=== PATIENT | female | born 1960 | race Caucasian/White ===

== ENCOUNTER 2018-11-02 15:08 | Outpatient (CLI) | payer OTHER ==
--- NOTE | 2018-11-02 19:04 | RAD ---
RIGHT FOOT THREE VIEWS 11/02/18 No fracture or area of bony destruction was seen. There is no acute bony change. A large calcaneal sp ur was noted. There is some minor arthritic changes in some of the intertarsal joints. The third meta tarsal head is flattened and slightly deformed. It is most suggestive of an old injury to this locati on. IMPRESSION: 1. Deformity of the third metatarsal head, most likely due to old trauma. 2. Large calcaneal spur. POS: HOME
== END 2018-11-02 15:09 | disposition home or self-care (01) ==
LOC: BURRAD 15:08
PROVIDERS: ATTEND Family Medicine
DX: M79.671 Pain in right foot (principal); M77.31 Calcaneal spur, right foot

== ENCOUNTER 2022-03-24 13:57 | Emergency (ER) | payer OTHER | END 2022-03-24 14:55 | disposition home or self-care (01) | LOC: BURERS 13:57 | DX: S89.92XA Unspecified injury of left lower leg, initial encounter (principal); E11.9 Type 2 diabetes mellitus without complications; X58.XXXA Exposure to other specified factors, initial encounter ==

== ENCOUNTER 2023-05-07 06:29 | Emergency (ER) | payer OTHER ==
[2023-05-07 07:25] LABS: Bilirubin Negative (Negative); Blood, Urine Trace (Negative); Clarity Clear (Clear); Glucose, Urine (Dipstick) Negative (Negative); Ketone, Urine Negative (Negative); Leukocyte Trace (Negative); Nitrite Negative (Negative); Protein, Urine (Dipstick) 100 mg/dL (Neg-Trace); Urobilinogen 0.2 mg/dL (Less than 2)
[2023-05-07 07:28] LABS: Specific Gravity, Urine 1.022 (1.002-1.036)
[2023-05-07 07:33] LABS: Bacteria/HPF 2+ HPF (None Seen); CAUTI Indications for Culture Dysuria,urgency,freq; RBC/HPF 0-3 HPF (0-3); Squamous Epithelial 0-3 HPF (0-3); WBC/HPF 0-3 HPF (0-3)
[2023-05-07 07:34] LABS: Urine Culture Reflex No No
== END 2023-05-07 07:20 | disposition home or self-care (01) ==
LOC: BURERS 06:29
DX: S43.402A Unspecified sprain of left shoulder joint, initial encounter (principal); E11.9 Type 2 diabetes mellitus without complications; Z79.84 Long term (current) use of oral hypoglycemic drugs; W19.XXXA Unspecified fall, initial encounter
CPT/HCPCS: 81001

== ENCOUNTER 2023-06-16 11:33 | Outpatient (CLI) | payer OTHER | END 2023-06-16 11:34 | disposition home or self-care (01) | LOC: BURRAD 11:33 | PROVIDERS: ATTEND Family Medicine | DX: Z01.818 Encounter for other preprocedural examination (principal) | CPT/HCPCS: 71046; 93005; 93010 ==

== ENCOUNTER 2024-05-16 12:20 | Emergency (ER) | payer MEDICARE ==
[2024-05-16 12:41] LABS: Bilirubin Moderate (Negative); Blood, Urine Large (Negative); Clarity Turbid (Clear); Glucose, Urine (Dipstick) Negative (Negative); Ketone, Urine 15 mg/dL (Negative); Leukocyte Negative (Negative); Nitrite Negative (Negative); Protein, Urine (Dipstick) > or equal to 300 mg/dL (Neg-Trace)
[2024-05-16 12:42] LABS: Specific Gravity, Urine 1.026 (1.002-1.036)
[2024-05-16 12:49] LABS: Bacteria/HPF 3+ HPF (None Seen); CAUTI Indications for Culture Dysuria,urgency,freq; Calcium Oxalate Crystals Rare HPF (None Seen); RBC/HPF Greater than 50 HPF (0-3)
[2024-05-16 12:51] LABS: Urine Culture Reflex No No
== END 2024-05-16 13:15 | disposition home or self-care (01) ==
LOC: BURERS 12:20
DX: R31.9 Hematuria, unspecified (principal); E11.9 Type 2 diabetes mellitus without complications
CPT/HCPCS: 81001; 99283

== ENCOUNTER 2024-07-05 20:19 | Emergency (ER) | payer MEDICARE ==
[2024-07-05 21:36] LABS: ALT (SGPT) 15 U/L (8-55); AST (SGOT) 15 U/L (5-34); Alkaline Phosphatase 42 U/L (40-110); Anion Gap 16 mmol/L (10-20); BUN (Urea Nitrogen) 16 mg/dL (9.8-20.1); Bilirubin, Total 0.3 mg/dL (0.2-1.2); Calc. Creatinine Clearance 0 mL/min (70-130); Calcium 9.9 mg/dL (7.8-10.44); Carbon Dioxide 21 mmol/L (23-31); Chloride 104 mmol/L (98-107); Estimated GFR 46; Globulin 3.3 g/dL (2.4-3.5); Glucose 283 mg/dL (80-115); Protein, Total 7.3 g/dL (5.8-8.1); Sodium 137 mmol/L (136-145)
[2024-07-05 21:40] LABS: Bilirubin Negative (Negative); Blood, Urine Small (Negative); Clarity Clear (Clear); Glucose, Urine (Dipstick) 500 mg/dL (Negative); Ketone, Urine Trace mg/dL (Negative); Leukocyte Trace (Negative); Nitrite Negative (Negative); Protein, Urine (Dipstick) 30 mg/dL (Neg-Trace); Urobilinogen 0.2 mg/dL (Less than 2); pH, Urine 5.5 (5.0-9.0)
[2024-07-05 21:41] LABS: #Basophils 0.2 thou/uL (0.0-0.2); #Eosinophils 0.1 thou/uL (0.0-0.7); #Lymphocytes 2.4 thou/uL (1.20-3.40); #Monocytes 0.7 thou/uL (0.11-0.59); #Neutrophils 6.6 thou/uL (1.40-6.50); %Basophils 1.6 % (0.0-1.0); %Eosinophils 0.8 % (0.0-10.0); %Lymphocytes 24.4 % (21.0-51.0); %Monocytes 6.9 % (0.0-10.0); %Neutrophils 66.3 % (42.0-75.0); Hematocrit 37.8 % (36.0-47.0); Hemoglobin 12.9 g/dL (12.0-16.0); Mean Corpuscular HGB CONC 34.1 g/dL (32.0-36.0); Mean Corpuscular Volume 88.1 fl (78.0-98.0); Mean Platelet Volume 7.4 fL (7.4-10.4); Platelet Count 207 10x3/uL (130-400); Red Blood Cell (RBC) Count 4.29 mill/uL (4.20-5.40); White Blood Cell (WBC) Count 9.9 10x3/uL (4.8-10.8)
[2024-07-05 21:50] LABS: Bacteria/HPF None Seen HPF (None Seen); CAUTI Indications for Culture Acute Hematuria; Squamous Epithelial 0-3 HPF (0-3); WBC/HPF 0-3 HPF (0-3)
[2024-07-05 21:51] LABS: Urine Culture Reflex No No
== END 2024-07-05 22:30 | disposition home or self-care (01) ==
LOC: BURERS 20:19
DX: N13.2 Hydronephrosis with renal and ureteral calculous obstruction (principal); E11.9 Type 2 diabetes mellitus without complications; Z79.84 Long term (current) use of oral hypoglycemic drugs
CPT/HCPCS: 74176; 80053; 81001; 85025